=== PATIENT | female | born 1985 | race Hispanic/Latino ===

== ENCOUNTER 2018-02-08 09:49 | Inpatient (IN) | payer MEDICAID, OTHER ==
[~2018-02-08] VITALS: Ht 154.9 cm; Wt 53.5 kg
[2018-02-08] MEDS ORDERED: LACTATED RINGERS 1000ML 1,000 ML IV PRN (10:31)
[2018-02-08] MEDS ORDERED: OXYTOCIN-LR 20 UNITS/1000 ML 1,000 ML IV SCH (10:45)
[2018-02-08 11:02] LABS: HEMATOCRIT 39.5 % (36-48); MEAN CORPUSCULAR HEMOGLOBIN 33.8 pg (27.0-33.0); MEAN CORPUSCULAR HGB CONC 34.4 g/dL (32.0-36.0); MEAN CORPUSCULAR VOLUME 98.3 fL (79-99); PLATELET COUNT (AUTO) 191 K/uL (130-400); RED BLOOD CELL COUNT(AUTO) 4.02 MIL/uL (4.00-5.50); WHITE BLOOD COUNT (AUTO) 6.8 K/uL (4.8-10.8)
[2018-02-08 11:07] LABS: APPEARANCE,URINE Clear (CLEAR); BILIRUBIN,URINE Negative (NEGATIVE); COLOR,URINE Yellow (YELLOW); GLUCOSE, URINE (UA) Negative (NEGATIVE); KETONES,URINE Negative (NEGATIVE); LEUKOCYTE ESTERASE ,URINE Moderate (NEGATIVE); NITRATE,URINE Negative (NEGATIVE); OCCULT BLOOD,URINE Large (NEGATIVE); PH,URINE 6.5 (5.0-8.0); PROTEIN,URINE Negative (NEGATIVE); UROBILINOGEN,URINE 0.2 mg/dL (0.2-1.0)
[2018-02-08 11:21] LABS: BACTERIA,URINE Moderate /HPF (None Seen)
[2018-02-08] MEDS ORDERED: OXYTOCIN 10 USP UNITS/ML 20 UNIT in LACTATED RINGERS 1000ML 1,000 ML IV SCH (13:00)
[2018-02-08] MEDS ORDERED: OXYTOCIN 10 USP UNITS/ML ONE (13:02)
[2018-02-08] MEDS ORDERED: PROMETHAZINE HCL 25 MG/ML 1ML AMPULE IM SCH (15:45)
[2018-02-08] MEDS ORDERED: MEPERIDINE-PF 25 MG/ML SYG IVP ONE (15:45)
[2018-02-08] MEDS ORDERED: FENTANYL CITRATE PF 50 MCG/1 ML 2ML VIAL ONE (16:20)
[2018-02-08] MEDS ORDERED: MIDAZOLAM HCL 1 MG/ML 2ML VIAL ONE (16:29)
[2018-02-08] MEDS ORDERED: CEFAZOLIN SODIUM 1 GM VIAL ONE (16:30)
[2018-02-08] MEDS ORDERED: CEFAZOLIN SODIUM 1 GM VIAL IVP ONE (16:35)
[2018-02-08] MEDS ORDERED: OXYTOCIN 10 UNIT/1ML 10ML VIAL ONE ×2 (16:35)
[2018-02-08] MEDS ORDERED: ONDANSETRON HCL 4 MG/2 ML VIAL ONE (16:36)
[2018-02-08] MEDS ORDERED: EPINEPHRINE 1 MG/ML AMPULE ONE (16:56)
[2018-02-08] MEDS ORDERED: METOCLOPRAMIDE 10 MG/2 ML VIAL IVP PRN (17:30)
[2018-02-08] MEDS ORDERED: HYDROCODONE/ACETAMINOPHEN 5/325 MG TAB PO PRN ×2 (17:30)
[2018-02-08] MEDS ORDERED: NALOXONE HCL 0.4 MG/1 ML ML IVP PRN ×2 (17:30)
[2018-02-08] MEDS ORDERED: EPHEDRINE SULFATE 50 MG/ML AMPULE IVP PRN (17:30)
[2018-02-08] MEDS ORDERED: ONDANSETRON HCL 4 MG/2 ML 8 MG in SODIUM CHLORIDE 0.9% 50 ML IVP NR (17:30)
[2018-02-08] MEDS ORDERED: ONDANSETRON HCL 4 MG/2 ML VIAL IVP PRN ×2 (17:30)
[2018-02-08] MEDS ORDERED: PROMETHAZINE HCL 25 MG/ML 1ML AMPULE IM PRN (17:30)
[2018-02-08] MEDS ORDERED: MORPHINE SULFATE 2 MG/ML 1ML SYG IVP PRN (17:30)
[2018-02-08] MEDS ORDERED: DiphenhydrAMINE HCL 50 MG/ML VIAL IVP PRN (17:30)
[2018-02-08 18:15] VITALS: BP 139/80
[2018-02-08] MEDS ORDERED: OXYTOCIN-LR 20 UNITS/1000 ML 1,000 ML IV PRN (18:31)
[2018-02-08] MEDS ORDERED: SODIUM CHLORIDE 0.9% 10 ML VIAL IVP PRN (18:45)
[2018-02-08] MEDS: PROMETHAZINE HCL 25 MG/ML 1ML AMPULE IM PRN ×2 (18:46→23:56)
[2018-02-08] MEDS: MEPERIDINE-PF 75 MG/ML SYG IM PRN ×2 (18:46→23:57)
[2018-02-08] MEDS ORDERED: PNV1TABL17 PO (18:48)
[2018-02-08 20:30] VITALS: BP 129/76
[2018-02-08 23:47] VITALS: BP 124/75
[2018-02-09] MEDS: DEXTROSE 5 %-0.45 % NACL 1,000 ML IV PRN ×2 (00:04→06:33)
[2018-02-09 03:47] VITALS: BP 108/59
[2018-02-09 05:29] LABS: HEMATOCRIT 32.8 % (36-48); MEAN CORPUSCULAR HEMOGLOBIN 33.2 pg (27.0-33.0); MEAN CORPUSCULAR HGB CONC 34.1 g/dL (32.0-36.0); MEAN CORPUSCULAR VOLUME 97.3 fL (79-99); PLATELET COUNT (AUTO) 157 K/uL (130-400); RED BLOOD CELL COUNT(AUTO) 3.38 MIL/uL (4.00-5.50); RED CELL DISTRIBUTION WIDTH 12.6 % (11.0-15.5); WHITE BLOOD COUNT (AUTO) 14.1 K/uL (4.8-10.8)
[2018-02-09] MEDS ORDERED: HYDROCODONE/ACETAMINOPHEN 5/325 MG TAB PO PRN (06:15)
[2018-02-09] MEDS ORDERED: ACETAMINOPHEN EXTRA STRENGTH 500 MG TABLET PO PRN (06:15)
[2018-02-09] MEDS ORDERED: BISACODYL 10 MG SUPP.RECT RC PRN (06:15)
[2018-02-09 07:30] LABS: HEPATITIS Bs ANTIGEN SCREEN P Negative (Negative)
[2018-02-09 07:38] VITALS: BP 103/66
[2018-02-09] MEDS: SIMETHICONE 80 MG TAB.CHEW PO PRN ×3 (09:28→20:12)
[2018-02-09] MEDS: DOCUSATE SODIUM 100 MG CAP PO SCH ×2 (09:28→20:12)
[2018-02-09] MEDS: IBUPROFEN 600 MG TABLET PO PRN ×2 (09:29→17:00)
[2018-02-09] MEDS: ACETAMINOPHEN-CODEINE 300/30MG TAB PO PRN ×2 (11:39→18:54)
[2018-02-09 11:40] VITALS: BP 92/52
[2018-02-09 15:45] VITALS: BP 94/51
[2018-02-09 19:00] VITALS: BP 103/62
[2018-02-10 00:10] VITALS: BP 106/67
[2018-02-10 04:00] VITALS: BP 103/71
[2018-02-10] MEDS: ACETAMINOPHEN-CODEINE 300/30MG TAB PO PRN ×2 (06:55→11:26)
[2018-02-10 07:43] VITALS: BP 104/58
[2018-02-10] MEDS: DOCUSATE SODIUM 100 MG CAP PO SCH (08:37)
[2018-02-10] MEDS: SIMETHICONE 80 MG TAB.CHEW PO PRN ×2 (08:37→14:00)
[2018-02-10 11:31] VITALS: BP 94/66
[2018-02-10] MEDS: IBUPROFEN 600 MG TABLET PO PRN (14:00)
== END 2018-02-10 14:40 | disposition home or self-care (01) | DRG 540 ==
LOC: LDH 09:50 → OBSVTOIN 09:50 → WSH 18:26
PROVIDERS: ADMIT Obstetrics & Gynecology; ATTEND Obstetrics & Gynecology
PROC: 10D00Z1 Extraction of Products of Conception, Low, Open Approach (ICD-10-PCS; principal; 2018-02-08 16:20)
DX: O69.0XX0 Labor and delivery complicated by prolapse of cord, not applicable or unspecified (principal); Z37.0 Single live birth; Z3A.39 39 weeks gestation of pregnancy
CPT/HCPCS: 36415; 59510; 81001; 85027; 86592; 86850; 86900; 86901; 87340; A4344; A4450; A4606; J0171; J0690; J2175; J2250; J2405; J2550; J2590; J3010; J7120